=== PATIENT | male | born 1965 ===

== ENCOUNTER 2020-01-07 06:08 | Day surgery (SDC) | payer OTHER ==
[~2020-01-07 06:08] MED LIST: ACETAMINOPHEN 500 MG TAB PO SCH; CELECOXIB 200 MG CAP PO NR; GABAPENTIN 300 MG CAP PO NR; LACTATED RINGERS 1,000 ML IV SCH; MIDAZOLAM 2 MG/2 ML INJ IV NR; ceFAZolin/Water 2 GM/20 ML 2 GM/20 ML SYRINGE IV NR
[2020-01-07] MEDS ORDERED: LIDOCAINE (1%) 10 MG/1 ML VIAL 20 ML MDV ONE (07:09)
[2020-01-07] MEDS ORDERED: BUPIVACAINE/PF (0.5%) 5 MG/1 ML 30 ML VIAL INFILTRATI ONE ×2 (07:09→08:35)
[2020-01-07] MEDS ORDERED: HYDROmorphone 1 MG/1 ML INJ IV PRN (07:16)
[2020-01-07] MEDS ORDERED: ONDANSETRON 4 MG/2 ML INJ IV PRN (07:16)
--- NOTE | 2020-01-07 07:16 | Anesthesia Consultation ---
Anesthesia Consult and Med Hx Date of service: 01/07/20 - Airway Anesthetic Teeth Evaluation: Good ROM Head & Neck: Adequate Mental/Hyoid Distance: Adequate Mallampati Class: Class III Intubation Access Assessment: Possibly Difficult - Pulmonary Exam CTA: Yes - Cardiac Exam Cardiac Exam: RRR - Pre-Operative Health Status ASA Pre-Surgery Classification: ASA2 Proposed Anesthetic Plan: General - Pulmonary Hx Smoking: No Hx Respiratory Symptoms: No (COVID + 1 month ago; asymptomatic infection) Hx Sleep Apnea: No ([facility] PRE SCREEN HIGH RISK) - Cardiovascular System Hx Hypertension: No Hx Heart Attack/AMI: No Hx Percutaneous Transluminal Coronary Angioplasty (PTCA): No - Central Nervous System CVA: No - Gastrointestinal Hx Gastroesophageal Reflux Disease: No - Endocrine Hx Renal Disease: No Hx Liver Disease: No Hx Insulin Dependent Diabetes: No Hx Non-Insulin Dependent Diabetes: No Hx Thyroid Disease: No - Other Systems Hx Obesity: No - Additional Comments Anesthesia Medical History Comments: 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
--- NOTE | 2020-01-07 07:16 | Anesthesia Day of Surgery ---
Anesthesia Day of Surgery - Day of Surgery Patient Examined: Yes Patient H&P Reviewed: Yes Patient is NPO: Yes
[2020-01-07] MEDS ORDERED: HYDROmorphone 1 MG/1 ML INJ ONE (07:17)
[2020-01-07] MEDS ORDERED: propofoL 200 MG/20 ML VIAL IV ONE (07:17)
[2020-01-07] MEDS ORDERED: LIDOCAINE MPF (2%) 20 MG/1 ML VIAL 5 ML ONE (07:20)
[2020-01-07] MEDS ORDERED: LIDOCAINE (1%) 10 MG/1 ML VIAL 20 ML MDV INFILTRATI ONE (08:35)
[2020-01-07] MEDS ORDERED: WATER FOR IRRIG STERILE 1,500 ML BOTTLE IR ONE (08:36)
[2020-01-07] MEDS ORDERED: ROCURONIUM 50 MG/5 ML INJ IV ONE (09:28)
[2020-01-07] MEDS ORDERED: GLYCOPYRROLATE 0.4 MG/2 ML INJ ONE (09:29)
[2020-01-07] MEDS ORDERED: ONDANSETRON 4 MG/2 ML INJ ONE (09:29)
[2020-01-07] MEDS ORDERED: NEOSTIGMINE 10MG/10 ML INJ MDV ONE (09:29)
[2020-01-07] MEDS ORDERED: LACTATED RINGERS 1,000 ML ONE (09:33)
--- NOTE | 2020-01-07 09:43 | Short Stay Summary ---
Short Stay Documentation Date of service: 01/07/20 - History Principal diagnosis: left inguinal hernia H&P: obtained from office - Allergies and Medications Current Medications: Allergies No Known Allergies Allergy (Verified 12/26/19 14:13) Home Medications Medication Instructions Recorded Confirmed Last Taken Type No Known Home Medications [No 12/26/19 12/26/19 Unknown History Reported Home Medications] Active Medications Acetaminophen (Tylenol) 1,000 mg PO PREOP KASSIDY Stop: 01/07/20 23:59 Last Admin: 01/07/20 07:23 Dose: 1,000 mg Documented by: Celecoxib (Celebrex) 200 mg PO PREOP NR Stop: 01/07/20 23:59 Last Admin: 01/07/20 07:23 Dose: 200 mg Documented by: Gabapentin (Gabapentin) 600 mg PO PREOP NR Stop: 01/07/20 23:59 Last Admin: 01/07/20 07:23 Dose: 600 mg Documented by: Hydromorphone HCl (Dilaudid) 0.5 mg IV Q10MIN PRN PRN Reason: Pain , Severe (7-10) Stop: 01/07/20 22:00 Cefazolin Sodium (Ancef/Sterile Water 2 Gm/20 Ml) 2 gm in 20 mls @ 80 mls/hr IV PREOP NR Stop: 01/07/20 18:00 Lactated Ringer's (Lactated Ringers) 1,000 mls @ 100 mls/hr IV DIRECT KASSIDY Stop: 01/07/20 23:59 Last Admin: 01/07/20 07:29 Dose: 100 mls/hr Documented by: Midazolam HCl (Versed) 2 mg IV PREOP NR Stop: 01/07/20 23:59 Last Admin: 01/07/20 07:32 Dose: 2 mg Documented by: Ondansetron HCl (Zofran) 4 mg IV ONCE PRN PRN Reason: Nausea And Vomiting Stop: 01/07/20 16:00 - Brief post op/procedure progress note Date of procedure: 01/07/20 Pre-op diagnosis: left inguinal hernia Post-op diagnosis: same Procedure: robotic assisted left inguinal hernia repair with mesh Anesthesia: GETA, local Findings: Indirect hernia with lipoma Surgeon: SASHA FERNANDO (Dr. Woods - Gasoline Catalyst Operator) Estimated blood loss: minimal Pathology: none Condition: stable - Hospital course Hospital course: Pt observed in PACU and discharged to home in stable condition when criteria met - Disposition Condition at discharge: Good Disposition: DC-01 TO HOME OR SELFCARE Short Stay Discharge Plan Activity: other (no heavy lifting) Diet: regular Wound: open to air, per your surgeon's advice Additional Instructions: SEE PRINTED DISCHARGE INSTRUCTIONS Follow up with: PRIMARY CARE, [Primary Care Provider] - 7 Days SASHA FERNANDO DO [Staff Physician] - 14 Days Prescriptions: Celecoxib [celeBREX] 200 mg PO BID #6 capsule Gabapentin 300 mg PO BID #6 capsule HYDROcodone/APAP 5-325 [[place] 5/325] 1 each PO Q6H PRN #20 tablet PRN Reason: Pain , Severe (7-10)
[2020-01-07] MEDS ORDERED: HYDROcodone/ACETAMINOPHEN 5-325 MG TAB PO PRN (10:15)
[2020-01-07 10:42] VITALS: BP 109/83
--- NOTE | 2020-01-07 12:49 | Operative Report ---
Operative Report Operative Report: Date of procedure: 01/07/20 Pre-op diagnosis: left inguinal hernia Post-op diagnosis: same Procedure: robotic assisted left inguinal hernia repair with mesh Anesthesia: GETA, local Findings: Indirect hernia with lipoma Surgeon: SASHA FERNANDO (Dr. Woods - Assistant Therapy Aide) Estimated blood loss: minimal Pathology: none Condition: stable Hospital course: Pt observed in PACU and discharged to home in stable condition when criteria met HPI and indication: Patient is a 54-year-old male with a symptomatic left inguinal hernia. 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 The hernia was visible on physical exam and reducible. Patient denied obstructive symptoms. It was recommended that the hernia be repaired. I discussed all risk, benefits, alternatives to repair with the patient and questions were answered. I explained that if the hernia was found on the right side at the same time, this would be fixed as well. The patient was agreeable. Consent obtained for robotic assisted left inguinal hernia repair with mesh, possible right, possible open. Procedure in detail: Patient was identified in the preoperative area, take back to operating room placed on operative table in supine position. After anesthesia was induced both arms were tucked and all bony prominences padded appropriately. A Hassan catheter was sterilely placed by the circulating nurse. The abdomen and left groin was then prepped and draped in usual sterile fashion a timeout performed. Local anesthetic was infiltrated to skin at the intended incision sites. A supraumbilical incision was made through which a Veress needle was inserted. Veress needle positioning was confirmed using saline drop test and the abdomen insufflated to 15 mmHg. Once the abdomen was insufflated, the Veress needle was removed and a 5 mm Optiview trocar was placed as incision. The abdomen is inspected there was no underlying injury to any of the abdominal structures. Patient was placed in Trendelenburg and the pelvis examined. There was a left inguinal hernia. No hernia was seen on the right. At this point, an 8 mm right upper quadrant and left upper quadrant robotic trocars were then placed under direct visualization. The 5 mm supraumbilical trocar was removed and replaced with a 12 mm balloon trocar under direct visualization. A Ray-Kyle was placed into the abdomen. The robot was then docked. A fenestrated bipolar was placed into arm #2 and a monopolar scissor in arm #1. The surgeon was then transferred to the console. I started by creating a preperitoneal flap. The peritoneum was scored approximately 5 to 6 cm from the hernia defect. The peritoneum was then incised from the midline to the ASIS. The preperitoneal flap was then developed in an avascular plane. I first defined by medial margins by dissecting to the pubic tubercle. The pubic tubercle was cleared of overlying fatty tissue using blunt dissection. I then created lateral margin in a similar fashion. Great care was taken to avoid injury to any nerves. I then started to reduce the hernia sac. The hernia sac was grasped and retracted laterally and cremasteric muscles were divided in a very careful fashion. During the dissection, the cord structures were identified and protected. The cord structures and vas deferens were visualized throughout the entire dissection. There was a moderate sized cord lipoma associated with the hernia sac which was reduced. The patient had an in direct inguinal hernia. The peritoneal flap was checked for hemostasis. Any additional cremasteric fibers that were were tenting up the peritoneum were divided. Hemostasis was carefully ensured. I decided to repair the hernia with a large left-sided 3D max mesh. This along with suture material was placed into the abdomen by the community program assistant. The mesh was positioned into the preperitoneal flap in the usual fashion. The medial portion of the flap was sutured to Mynor's ligament using an interrupted 2-0 Vicryl stitch. The lateral aspect of the mesh was sutured to the anterior lateral abdominal wall using a 2-0 Vicryl interrupted stitch. The mesh was seen to lay flat in the pocket with excellent coverage. A 18 Spanish Angiocath was inserted through the abdominal wall into the pocket by the community program assistant under direct visualization. The needle was withdrawn into the catheter. The peritoneum was then reapproximated using 3-0 running V-Loc stitch. The very redundant hernia sac along with cord lipoma were incorporated into this repair. A small hole in the peritoneum was identified and approximated using a 2-0 Vicryl [id number] stitch. The remainder of the peritoneum was inspected carefully and there was no additional hole seen. The entirety of the mesh was covered with peritoneum. The robot was then undocked and the surgeon scrubbed back in. The remainder of the case was performed laparoscopically. All sharp materials along with a Ray-Kyle were removed from the abdomen under direct visualization. The 12 mm port was removed and the fascia closed using a interrupted 0 Vicryl stitch with a Martín Jordan device. The abdomen was then slowly desufflated and the mesh was seen to lay flat in the preperitoneal space. The remaining trocars were removed and any scrotal air evacuated through the Angiocath. The Angiocath was then removed. Skin incisions were once again infiltrated with local anesthetic. A left ilioinguinal nerve block was also performed with 8 cc of local anesthetic. The skin incisions were approximated with 4-0 Monocryl subcuticular stitches and skin glue. At the end of the case all sponge, instrument, sharp counts were correct x2. Patient was awoken from anesthesia and Hassan catheter removed. The patient was taken to PACU in stable condition.
--- NOTE | 2020-01-07 13:17 | Post Anesthesia Evaluation ---
- Post Anesthesia Evaluation Patient Participated: Yes Airway Patent: Yes Stable Respiratory Function: Yes Nausea/Vomiting: No Temp > 96.8F: Yes Pain Manageable: Yes Adequeate Hydration: Yes Anesthesia Complications: No
== END 2020-01-07 06:09 | disposition home or self-care (01) ==
LOC: OR 06:08
PROVIDERS: ATTEND Surgery
DX: K40.90 Unilateral inguinal hernia, without obstruction or gangrene, not specified as recurrent (principal); Z20.828 Contact with and (suspected) exposure to other viral communicable diseases; D17.6 Benign lipomatous neoplasm of spermatic cord; Z79.899 Other long term (current) drug therapy; Z87.01 Personal history of pneumonia (recurrent); Z98.890 Other specified postprocedural states
CPT/HCPCS: 49650; C1781; J0690; J1170; J2250; J2405; J2704; J2710; J7120; S2900; U0003